=== PATIENT | female | born 1995 | race Caucasian/White ===

== ENCOUNTER → 2016-05-17 | Outpatient (CLI) | payer OTHER ==
[~2016-05-17] MED LIST: TYLE325T5 PO; [UNRECOGNIZED DRUG - OTHER]
[2016-05-17 13:39] LABS: ALBUMIN 3.9 GM/DL (3.2-5.2); ALBUMIN/GLOBULIN RATIO 1.22 (1.00-1.93); ALKALINE PHOSPHATASE 62 U/L (45-117); ALT/SGPT 13 U/L (12-78); ANION GAP 7 MEQ/L (8-16); AST/SGOT 11 U/L (15-37); BILIRUBIN,TOTAL 0.4 MG/DL (0.2-1.0); BLOOD UREA NITROGEN 10 MG/DL (7-18); CALCIUM LEVEL 9.1 MG/DL (8.5-10.1); CARBON DIOXIDE LEVEL 28 MEQ/L (21-32); CHLORIDE LEVEL 106 MEQ/L (98-107); CHOLESTEROL LEVEL 166 MG/DL (<200); CREATININE FOR GFR 0.68 MG/DL (0.55-1.02); GLOMERULAR FILTRATION RATE > 60.0 (>60); GLUCOSE, FASTING 89 MG/DL (70-105); SODIUM LEVEL 141 MEQ/L (136-145); TOTAL PROTEIN 7.1 GM/DL (6.4-8.2); TRIGLYCERIDES LEVEL 82 MG/DL (<150)
== END ==
LOC: M LAB 12:18
PROVIDERS: ATTEND Nurse Practitioner Family
DX: R63.5 Abnormal weight gain (principal)

== ENCOUNTER 2016-05-31 17:11 | Emergency (ER) | payer OTHER ==
[2016-05-31] MEDS ORDERED: KETOROLAC 30 MG/ML VIAL (J1885) As Ordered ONE (18:31)
[2016-05-31] MEDS ORDERED: ONDANSETRON 4 MG ORAL DISINTEGRATING TAB (S0181) As Ordered ONE (18:31)
--- NOTE | 2016-05-31 19:19 | EDDOCDS ---
Physician Documentation [facility] Name: Hafsa Hutchison Age: 21 yrs Sex: Female : 1995 Arrival Date: 05/31/2016 Time: 17:11 Bed TR3 Private MD: Feli Rodriguez FNP Disposition: 05/31/16 18:59 Discharged to Home/Self Care. Impression: Nausea, Diarrhea, unspecified, Viral infection, unspecified. - Condition is Stable. - Discharge Instructions: Viral Infections, Viral Gastroenteritis, Clai-uv-Nwul. - Prescriptions for ZOFRAN ODT 4 mg - dissolve 1 tablet by ORAL route 4 times per day As needed do not chew, do not swallow whole; 10 tablet. - Medication Reconciliation, Work Release Form - 2 day, Local Pharmacy Hours form. - Follow up: Feli Rodriguez; When: Call to arrange an appointment; Reason: Further diagnostic work-up, Recheck today's complaints, Continuance of care. - Problem is new. - Symptoms are unchanged. Historical: - Allergies: Benadryl (itching); - Home Meds: 1. none - PMHx: Hypertension; Anxiety; - PSHx: Adenoidectomy; Tubes in ears; - Social history: Smoking status: Patient uses tobacco products, current every day smoker. No barriers to communication noted, The patient speaks fluent Dutch. - Family history: Not pertinent. - : The pt / caregiver states he / she is not on anticoagulants. Home medication list is obtained from the patient. - Exposure Risk Screening:: None identified. 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 3 in. (160.02 cm) (R); Pain 5/10; 19:07 BP 122 / 82; Pulse 99; Resp 18; Temp 98.6(TE); Pulse Ox 100% on R/A; Pain 4/10; mdr 17:13 Body Mass Index 27.99 (71.67 kg, 160.02 cm) gr2 MDM: 17:36 Strep Screen, Nursing ordered. dt4 17:36 UCG by Nursing ordered. dt4 17:37 Urinalysis Ordered. EDMS 17:37 Urine Culture Ordered. EDMS 17:55 GATS (NEGATIVE STREP SCREEN) Ordered. EDMS 17:57 [facility] Payment Agreement was scanned into [employer] and attached to record. gb 18:19 Financial registration complete. gb 18:24 Urinalysis Reviewed. btw 18:25 Ondansetron ODT Oral Disintegrating Tablet 4 mg PO once ordered. btw 18:25 ketorolac 30 mg IM once ordered. btw 18:26 CT ABD & PELVIS: No Contrast Ordered. EDMS Point of Care Testing: Urine : 17:58 hCG Reading: Negative; Control Reading: Positive; mlb1 Ranges: Administered Medications: 18:35 Drug: Ondansetron ODT 4 mg [ondansetron 4 mg disintegrating tablet (1 tabs)] Route: PO; mlb1 18:35 Drug: ketorolac 30 mg [ketorolac 30 mg/mL (1 mL) injection solution (1 mL)] Route: IM; mlb1 Site: left deltoid; Signatures: Dispatcher MedHost EDMS Angelica Joyce, Reg Reg gb Kuldeep Pepper PA PA btTarun Strong,RN RN Ute Matson PA-C PA-C dtSybil Dubois RN RN ms18 Preet Green RN mlb1 The chart was reviewed and I authenticate all verbal orders and agree with the evaluation and treatment provided.Attachments: 17:57 [facility] Payment Agreement gb MTDD
--- NOTE | 2016-05-31 19:19 | EDDOCDS ---
Nurse's Notes [facility] Name: Hafsa Hutchison Age: 21 yrs Sex: Female : 1995 Arrival Date: 05/31/2016 Time: 17:11 Bed TR3 Private MD: Feli Rodriguez FNP Diagnosis: Nausea;Diarrhea, unspecified;Viral infection, unspecified Presentation: 05/31 17:16 Presenting complaint: Patient states: that she has a sore throat, diarrhea, nausea that ms18 all began today. Pt also c/o L flank pain that began later in the day and a migraine. Adult Sepsis Screening: The patient does not have new or worsening altered mentation. Patient's respiratory rate is less than 22. Systolic blood pressure is greater than 100. Patient has a qSOFA score of 0- Negative Sepsis Screen. Suicide/Homicide risk assessment- the patient denies having any suicidal and/or homicidal ideations and does not present with any other emotional, behavioral or mental health complaints. Status: Patient is not a dental service technician or dependent. Transition of care: patient was not received from another setting of care. 17:16 Acuity: ANDREIA Level 3 ms18 17:16 Method Of Arrival: Walkin/Carried/Asstd ms18 Triage Assessment: 17:20 General: Appears in no apparent distress, comfortable, Behavior is appropriate for age, ms18 cooperative. Pain: Location: left flank Pain currently is 6 out of 10 on a pain scale. HIV screening NA for this visit Offered previously. Neurological: No deficits noted. Respiratory: Airway is patent Respiratory effort is even, unlabored. GI: Abdomen is non- distended Reports diarrhea, nausea. Derm: Skin is pink, warm & dry. 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 none - PMHx: Hypertension; Anxiety; - PSHx: Adenoidectomy; Tubes in ears; - Social history: Smoking status: Patient uses tobacco products, current every day smoker. No barriers to communication noted, The patient speaks fluent Monegasque. - Family history: Not pertinent. - : The pt / caregiver states he / she is not on anticoagulants. Home medication list is obtained from the patient. - Exposure Risk Screening:: None identified. Screenin:16 Screening information is obtained from the patient. Fall risk: No risks identified. jmb Assistance ADL's: requires no assistance with activities of daily living. Abuse/DV Screen: The patient / caregiver reports he/she is: not in a situation that causes fear, pain or injury. Nutritional screening: No deficits noted. Advance Directives: Currently, there is no health care proxy. There is no active DNR order. There is no living will. There is no Power of Survey Coordinator. home support is adequate. Assessment: 19:16 General: Patient instructed on discharge instructions. Patient asked if there were any b questions regarding discharge, patient stated no. Patient signed discharge instructions. Patient discharged in stable condition. . GI: Abdomen is non- distended Bowel sounds present X 4 quads. Abd is soft X 4 quads. Vital Signs: 17:13 BP 149 / 89; Pulse 112; Resp 18 S; Temp 97.5(O); Pulse Ox 100% on R/A; Weight 71.67 kg gr2 (R); Height 5 ft. 3 in. (160.02 cm) (R); Pain 5/10; 19:07 BP 122 / 82; Pulse 99; Resp 18; Temp 98.6(TE); Pulse Ox 100% on R/A; Pain 4/10; mdr 17:13 Body Mass Index 27.99 (71.67 kg, 160.02 cm) gr2 Vitals: 17:13 Log In Time: May 31, 2016 at 17:13. gr2 ED Course: 17:12 Patient visited by Jney Walton. gr2 17:12 Feli Rodriguez is Private Physician. gr2 17:12 Patient moved to Waiting gr2 17:14 Patient visited by Jeny Walton. gr2 17:14 Patient moved to Pre RCE gr2 17:18 Triage Initiated ms18 17:33 Patient moved to Triage 1 mlb1 17:53 Urine Culture Sent. mlb1 17:53 Urinalysis Sent. mlb1 17:57 [facility] [place] Agreement was scanned into [employer] and attached to record. gb 18:01 GATS (NEGATIVE STREP SCREEN) Sent. mlb1 18:05 Kuldeep Pepper PA is PHCP. btw 18:05 Antoine Apodaca MD is Attending Physician. btw 18:05 Patient visited by Kuldeep Pepper PA. btw 18:35 Patient moved to TR1 mlb1 18:59 Feli Rodriguez is Referral Physician. btw 19:03 Patient moved to PR 9 19:07 Patient visited by Roman Johansen PCA. mdr 19:16 The patient / caregiver is instructed regarding the plan of care and ED course. jmb 19:16 No IV's were initiated during this patient's visit. No procedures done that require jmb assistance. 19:18 Patient moved to TR3 mdr Administered Medications: 18:35 Drug: Ondansetron ODT 4 mg [ondansetron 4 mg disintegrating tablet (1 tabs)] Route: PO; mlb1 18:35 Drug: ketorolac 30 mg [ketorolac 30 mg/mL (1 mL) injection solution (1 mL)] Route: IM; mlb1 Site: left deltoid; Point of Care Testing: Urine : 17:58 hCG Reading: Negative; Control Reading: Positive; mlb1 Ranges: Order Results: Lab Order: Urinalysis; SPEC'M 05/31/16 17:44 Test: APPEARANCE, URINE; Value: HAZY; Range: CLEAR; Status: F Test: COLOR, URINE; Value: YELLOW; Range: YELLOW; Status: F Test: PH,URINE; Value: 5.0; Range: 5.0-9.0; Units: UNITS; Status: F Test: SPECIFIC GRAVITY URINE AUTO; Value: 1.024; Range: 1.002-1.035; Status: F Test: PROTEIN, URINE AUTO; Value: NEGATIVE; Range: NEGATIVE; Units: mg/dL; Status: F Test: GLUCOSE, URINE (UA) AUTO; Value: NEGATIVE; Range: NEGATIVE; Units: mg/dL; Status: F Test: KETONE, URINE AUTO; Value: NEGATIVE; Range: NEGATIVE; Units: mg/dL; Status: F Test: UROBILINOGEN, URINE AUTO; Value: 0.2; Range: 0.0-2.0; Units: mg/dL; Status: F Test: BILIRUBIN, URINE AUTO; Value: NEGATIVE; Range: NEGATIVE; Status: F Test: NITRITE, URINE AUTO; Value: NEGATIVE; Range: NEGATIVE; Status: F Test: LEUKOCYTE ESTERASE, URINE AUTO; Value: NEGATIVE; Range: NEGATIVE; Status: F Test: BLOOD, URINE BLOOD; Value: NEGATIVE; Range: NEGATIVE; Status: F Test: WBC, URINE AUTO; Value: 0; Range: 0-3; Units: /HPF; Status: F Test: RBC, URINE AUTO; Value: 2; Range: 0-3; Units: /HPF; Status: F Test: BACTERIA, URINE AUTO; Value: 1+; Range: NEGATIVE; Abnormal: Above high normal; Status: F Test: SQUAMOUS EPITHELIAL CELL UR AU; Value: 6; Range: 0-6; Units: /HPF; Status: F Test: MUCUS, URINE; Value: SMALL; Range: NEGATIVE; Status: F Test: HYALINE CAST, URINE AUTO; Value: 1; Range: 0-1; Units: /LPF; Status: F Outcome: 18:59 Discharge ordered by Provider. btw 19:16 Discharge Assessment: Patient awake, alert and oriented x 3. No cognitive and/or jmb functional deficits noted. Patient verbalized understanding of disposition instructions. Patient awake and alert. obeys commands, Oriented to person, place and time. Patient verbalized understanding of disposition instructions. Patient has no functional deficits. patient administered narcotics - no. The following High Risk Discharge criteria are identified: None. Discharged to home ambulatory, with significant other. Condition: stable Condition: improved. Discharge instructions given to patient, Instructed on discharge instructions, follow up and referral plans. medication usage, Demonstrated understanding of instructions, medications, Pt was receptive of discharge instructions/ teaching. Prescriptions given X 1. Work note provided to patient. No special radiology studies were completed. Property sent home with patient. 19:18 Patient left the ED. b Signatures: Angelica Joyce, Reg Reg gb Preet Green RN RN mlb1 Kuldeep Pepper PA PA btw Jeny Walton gr2 Tarun Chaidez RN RN mumtazb Sybil Ngo,SOHEILA RN ms18 Preet Sharp,RN RN mb9 Roman Johansen, MARA RANGE MASTER mdr MTDD
--- NOTE | 2016-06-01 08:26 | REP ---
Clinical: Diffuse generalized and Left flank pain. Comparison: 04/04/2013. Findings: Lung bases clear. Visualized heart and pericardium normal. Liver, spleen, pancreas, gallbladder, bilateral adrenal glands and kidneys are normal. Specifically, there is no hydroureteronephrosis, perinephric stranding, intrarenal or obstructing ureteral calculi. The enteric system is without obstruction or acute inflammatory process. Pelvis demonstrates normal bladder and retroverted uterus/adnexa with no pelvic fluid/ascites. No free air. No obvious adenopathy. Musculoskeletal structures are grossly intact. Impression: No acute intra-abdominal or pelvic pathology appreciated. Signed by Robert Lawrence MD 06/01/2016 08:17 A
--- NOTE | 2016-06-02 20:19 | EDDOCDS ---
Nurse's Notes [facility] Name: Hafsa Hutchison Age: 21 yrs Sex: Female : 1995 Arrival Date: 05/31/2016 Time: 17:11 Bed TR3 Private MD: Feli Rodriguez FNP Diagnosis: Nausea;Diarrhea, unspecified;Viral infection, unspecified Presentation: 05/31 17:16 Presenting complaint: Patient states: that she has a sore throat, diarrhea, nausea that ms18 all began today. Pt also c/o L flank pain that began later in the day and a migraine. Adult Sepsis Screening: The patient does not have new or worsening altered mentation. Patient's respiratory rate is less than 22. Systolic blood pressure is greater than 100. Patient has a qSOFA score of 0- Negative Sepsis Screen. Suicide/Homicide risk assessment- the patient denies having any suicidal and/or homicidal ideations and does not present with any other emotional, behavioral or mental health complaints. Status: Patient is not a conference service coordinator or dependent. Transition of care: patient was not received from another setting of care. 17:16 Acuity: ANDREIA Level 3 ms18 17:16 Method Of Arrival: Walkin/Carried/Asstd ms18 Triage Assessment: 17:20 General: Appears in no apparent distress, comfortable, Behavior is appropriate for age, ms18 cooperative. Pain: Location: left flank Pain currently is 6 out of 10 on a pain scale. HIV screening NA for this visit Offered previously. Neurological: No deficits noted. Respiratory: Airway is patent Respiratory effort is even, unlabored. GI: Abdomen is non- distended Reports diarrhea, nausea. Derm: Skin is pink, warm & dry. 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 none - PMHx: Hypertension; Anxiety; - PSHx: Adenoidectomy; Tubes in ears; - Social history: Smoking status: Patient uses tobacco products, current every day smoker. No barriers to communication noted, The patient speaks fluent Surinamese. - Family history: Not pertinent. - : The pt / caregiver states he / she is not on anticoagulants. Home medication list is obtained from the patient. - Exposure Risk Screening:: None identified. Screenin:16 Screening information is obtained from the patient. Fall risk: No risks identified. jmb Assistance ADL's: requires no assistance with activities of daily living. Abuse/DV Screen: The patient / caregiver reports he/she is: not in a situation that causes fear, pain or injury. Nutritional screening: No deficits noted. Advance Directives: Currently, there is no health care proxy. There is no active DNR order. There is no living will. There is no Power of Ccu Nurse. home support is adequate. Assessment: 19:16 General: Patient instructed on discharge instructions. Patient asked if there were any b questions regarding discharge, patient stated no. Patient signed discharge instructions. Patient discharged in stable condition. . GI: Abdomen is non- distended Bowel sounds present X 4 quads. Abd is soft X 4 quads. Vital Signs: 17:13 BP 149 / 89; Pulse 112; Resp 18 S; Temp 97.5(O); Pulse Ox 100% on R/A; Weight 71.67 kg gr2 (R); Height 5 ft. 3 in. (160.02 cm) (R); Pain 5/10; 19:07 BP 122 / 82; Pulse 99; Resp 18; Temp 98.6(TE); Pulse Ox 100% on R/A; Pain 4/10; mdr 17:13 Body Mass Index 27.99 (71.67 kg, 160.02 cm) gr2 Vitals: 17:13 Log In Time: May 31, 2016 at 17:13. gr2 ED Course: 17:12 Patient visited by Jeny Walton. gr2 17:12 Feli oRdriguez is Private Physician. gr2 17:12 Patient moved to Waiting gr2 17:14 Patient visited by Jeny Walton. gr2 17:14 Patient moved to Pre RCE gr2 17:18 Triage Initiated ms18 17:33 Patient moved to Triage 1 mlb1 17:53 Urine Culture Sent. mlb1 17:53 Urinalysis Sent. mlb1 17:57 [facility] Payment Agreement was scanned into [employer] and attached to record. gb 18:01 GATS (NEGATIVE STREP SCREEN) Sent. mlb1 18:05 Kuldeep Pepper PA is PHCP. btw 18:05 Antoine Apodaca MD is Attending Physician. btw 18:05 Patient visited by Kuldeep Pepper PA. btw 18:35 Patient moved to TR1 mlb1 18:59 Feli Rodriguez is Referral Physician. btw 19:03 Patient moved to PR2 / mb9 19:07 Patient visited by Roman Johansen PCA. mdr 19:16 The patient / caregiver is instructed regarding the plan of care and ED course. jmb 19:16 No IV's were initiated during this patient's visit. No procedures done that require jmb assistance. 19:18 Patient moved to TR3 mdr 02 08:33 CT ABD & PELVIS: No Contrast Returned. EDMS 10:37 T-Sheet-- Draft Copy was scanned into [employer] and attached to record. gb Administered Medications: 05/31 18:35 Drug: Ondansetron ODT 4 mg [ondansetron 4 mg disintegrating tablet (1 tabs)] Route: PO; mlb1 18:35 Drug: ketorolac 30 mg [ketorolac 30 mg/mL (1 mL) injection solution (1 mL)] Route: IM; mlb1 Site: left deltoid; Point of Care Testing: Urine : 17:58 hCG Reading: Negative; Control Reading: Positive; mlb1 Ranges: Order Results: Lab Order: Urinalysis; SPEC'M 05/31/16 17:44 Test: APPEARANCE, URINE; Value: HAZY; Range: CLEAR; Status: F Test: COLOR, URINE; Value: YELLOW; Range: YELLOW; Status: F Test: PH,URINE; Value: 5.0; Range: 5.0-9.0; Units: UNITS; Status: F Test: SPECIFIC GRAVITY URINE AUTO; Value: 1.024; Range: 1.002-1.035; Status: F Test: PROTEIN, URINE AUTO; Value: NEGATIVE; Range: NEGATIVE; Units: mg/dL; Status: F Test: GLUCOSE, URINE (UA) AUTO; Value: NEGATIVE; Range: NEGATIVE; Units: mg/dL; Status: F Test: KETONE, URINE AUTO; Value: NEGATIVE; Range: NEGATIVE; Units: mg/dL; Status: F Test: UROBILINOGEN, URINE AUTO; Value: 0.2; Range: 0.0-2.0; Units: mg/dL; Status: F Test: BILIRUBIN, URINE AUTO; Value: NEGATIVE; Range: NEGATIVE; Status: F Test: NITRITE, URINE AUTO; Value: NEGATIVE; Range: NEGATIVE; Status: F Test: LEUKOCYTE ESTERASE, URINE AUTO; Value: NEGATIVE; Range: NEGATIVE; Status: F Test: BLOOD, URINE BLOOD; Value: NEGATIVE; Range: NEGATIVE; Status: F Test: WBC, URINE AUTO; Value: 0; Range: 0-3; Units: /HPF; Status: F Test: RBC, URINE AUTO; Value: 2; Range: 0-3; Units: /HPF; Status: F Test: BACTERIA, URINE AUTO; Value: 1+; Range: NEGATIVE; Abnormal: Above high normal; Status: F Test: SQUAMOUS EPITHELIAL CELL UR AU; Value: 6; Range: 0-6; Units: /HPF; Status: F Test: MUCUS, URINE; Value: SMALL; Range: NEGATIVE; Status: F Test: HYALINE CAST, URINE AUTO; Value: 1; Range: 0-1; Units: /LPF; Status: F Lab Order: Urine Culture; SPEC'M 05/31/16 17:44 Test: URINE CULTURE; Value: <EXTERNAL COMMENT eCWMed> FULL REPORT IN LAB NOTES (eCW and Medent).; Status: F Test: URINE CULTURE; Value: URINE CULTURE RESULT NO GROWTH; Status: F Lab Order: GATS (NEGATIVE STREP SCREEN); SPEC'M 05/31/16 17:59 Test: GATS CULTURE (NEG STREP SCR); Value: GATS RESULT NEGATIVE FOR STREP PYOGENES (GROUP A); Status: F Test: GATS CULTURE (NEG STREP SCR); Value: <EXTERNAL COMMENT eCWMed> FULL REPORT IN LAB NOTES (eCW and Medent).; Status: F Radiology Order: CT ABD & PELVIS: No Contrast Test: CT ABD & PELVIS: No Contrast REASON FOR EXAMINATION: left FLANK PAIN;Abd. Pain - Generalized, Nn-focal Exam; Clinical: Diffuse generalized and Left flank pain.; ; Comparison: 04/04/2013.; ; Findings:; Lung bases clear. Visualized heart and pericardium normal.; ; Liver, spleen, pancreas, gallbladder, bilateral adrenal glands and kidneys are; normal. Specifically, there is no hydroureteronephrosis, perinephric stranding,; intrarenal or obstructing ureteral calculi. The enteric system is without; obstruction or acute inflammatory process. Pelvis demonstrates normal bladder; and retroverted uterus/adnexa with no pelvic fluid/ascites. No free air. No; obvious adenopathy. Musculoskeletal structures are grossly intact.; ; Impression:; No acute intra-abdominal or pelvic pathology appreciated.; ; ; Signed by; Robert Lawrence MD 06/01/2016 08:17 A; Outcome: 18:59 Discharge ordered by Provider. btw 19:16 Discharge Assessment: Patient awake, alert and oriented x 3. No cognitive and/or jmb functional deficits noted. Patient verbalized understanding of disposition instructions. Patient awake and alert. obeys commands, Oriented to person, place and time. Patient verbalized understanding of disposition instructions. Patient has no functional deficits. patient administered narcotics - no. The following High Risk Discharge criteria are identified: None. Discharged to home ambulatory, with significant other. Condition: stable Condition: improved. Discharge instructions given to patient, Instructed on discharge instructions, follow up and referral plans. medication usage, Demonstrated understanding of instructions, medications, Pt was receptive of discharge instructions/ teaching. Prescriptions given X 1. Work note provided to patient. No special radiology studies were completed. Property sent home with patient. 19:18 Patient left the ED. lucio Signatures: Dispatcher [employer] EDMS Angelica Joyce, Reg Reg gb Preet Green, RN RN mlb1 Kuldeep Pepper PA PA btw Jeny Walton gr2 Tarun ChaidezRN RN Sybil Sher RN RN ms18 Preet Sharp,RN RN mb9 Roman Johansen, MARA CEMENT OR CONCRETE FINISHING SUPERVISOR mdr Chart Complete MTDD
--- NOTE | 2016-06-02 20:19 | EDDOCDS ---
Physician Documentation [facility] Name: Hafsa Hutchison Age: 21 yrs Sex: Female : 1995 Arrival Date: 05/31/2016 Time: 17:11 Bed TR3 Private MD: Feli Rodriguez FNP Disposition: 05/31/16 18:59 Discharged to Home/Self Care. Impression: Nausea, Diarrhea, unspecified, Viral infection, unspecified. - Condition is Stable. - Discharge Instructions: Viral Infections, Viral Gastroenteritis, [id number]. - Prescriptions for ZOFRAN ODT 4 mg - dissolve 1 tablet by ORAL route 4 times per day As needed do not chew, do not swallow whole; 10 tablet. - Medication Reconciliation, Work Release Form - 2 day, Local Pharmacy Hours form. - Follow up: Feli Rodriguez; When: Call to arrange an appointment; Reason: Further diagnostic work-up, Recheck today's complaints, Continuance of care. - Problem is new. - Symptoms are unchanged. Historical: - Allergies: Benadryl (itching); - Home Meds: 1. none - PMHx: Hypertension; Anxiety; - PSHx: Adenoidectomy; Tubes in ears; - Social history: Smoking status: Patient uses tobacco products, current every day smoker. No barriers to communication noted, The patient speaks fluent Belizean. - Family history: Not pertinent. - : The pt / caregiver states he / she is not on anticoagulants. Home medication list is obtained from the patient. - Exposure Risk Screening:: None identified. RN PATIENT SERVICES: 05/31 17:20 LMP 05/05/2016 ms18 Vital Signs: 17:13 BP 149 / 89; Pulse 112; Resp 18 S; Temp 97.5(O); Pulse Ox 100% on R/A; Weight 71.67 kg gr2 / 158.01 lbs (R); Height 5 ft. 3 in. (160.02 cm) (R); Pain 5/10; 19:07 BP 122 / 82; Pulse 99; Resp 18; Temp 98.6(TE); Pulse Ox 100% on R/A; Pain 4/10; mdr 17:13 Body Mass Index 27.99 (71.67 kg, 160.02 cm) gr2 MDM: 17:36 Strep Screen, Nursing ordered. dt4 17:36 UCG by Nursing ordered. dt4 17:37 Urinalysis Ordered. EDMS 17:37 Urine Culture Ordered. EDMS 17:55 GATS (NEGATIVE STREP SCREEN) Ordered. EDMS 17:57 [facility] Payment Agreement was scanned into [employer] and attached to record. gb 18:19 Financial registration complete. gb 18:24 Urinalysis Reviewed. btw 18:25 Ondansetron ODT Oral Disintegrating Tablet 4 mg PO once ordered. btw 18:25 ketorolac 30 mg IM once ordered. btw 18:26 CT ABD & PELVIS: No Contrast Ordered. EDMS 06/01 10:37 T-Sheet-- Draft Copy was scanned into [employer] and attached to record. gb Point of Care Testing: Urine : 05/31 17:58 hCG Reading: Negative; Control Reading: Positive; mlb1 Ranges: Administered Medications: 18:35 Drug: Ondansetron ODT 4 mg [ondansetron 4 mg disintegrating tablet (1 tabs)] Route: PO; mlb1 18:35 Drug: ketorolac 30 mg [ketorolac 30 mg/mL (1 mL) injection solution (1 mL)] Route: IM; mlb1 Site: left deltoid; Signatures: Dispatcher [employer] EDTX Angelica Joyce, Reg Reg gb Kuldeep Pepper PA PA btw Becker, Joshua,RN RN Ute Matson PA-C PA-C dt4 Sybil Ngo RN RN ms18 Preet Green RN mlb1 The chart was reviewed and I authenticate all verbal orders and agree with the evaluation and treatment provided.Attachments: 17:57 [facility] Payment Agreement gb 06/01 10:37 T-Sheet-- Draft Copy gb Chart Complete MTDD
--- NOTE | 2016-06-02 20:19 | EDDOCDS ---
Physician Documentation [facility] Name: Hafsa Hutchison Age: 21 yrs Sex: Female : 1995 Arrival Date: 05/31/2016 Time: 17:11 Bed TR3 Private MD: Feli Rodriguez FNP Disposition: 05/31/16 18:59 Discharged to Home/Self Care. Impression: Nausea, Diarrhea, unspecified, Viral infection, unspecified. - Condition is Stable. - Discharge Instructions: Viral Infections, Viral Gastroenteritis, [id number]. - Prescriptions for ZOFRAN ODT 4 mg - dissolve 1 tablet by ORAL route 4 times per day As needed do not chew, do not swallow whole; 10 tablet. - Medication Reconciliation, Work Release Form - 2 day, Local Pharmacy Hours form. - Follow up: Feli Rodriguez; When: Call to arrange an appointment; Reason: Further diagnostic work-up, Recheck today's complaints, Continuance of care. - Problem is new. - Symptoms are unchanged. Historical: - Allergies: Benadryl (itching); - Home Meds: 1. none - PMHx: Hypertension; Anxiety; - PSHx: Adenoidectomy; Tubes in ears; - Social history: Smoking status: Patient uses tobacco products, current every day smoker. No barriers to communication noted, The patient speaks fluent Turkmen. - Family history: Not pertinent. - : The pt / caregiver states he / she is not on anticoagulants. Home medication list is obtained from the patient. - Exposure Risk Screening:: None identified. 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 3 in. (160.02 cm) (R); Pain 5/10; 19:07 BP 122 / 82; Pulse 99; Resp 18; Temp 98.6(TE); Pulse Ox 100% on R/A; Pain 4/10; mdr 17:13 Body Mass Index 27.99 (71.67 kg, 160.02 cm) gr2 MDM: 17:36 Strep Screen, Nursing ordered. dt4 17:36 UCG by Nursing ordered. dt4 17:37 Urinalysis Ordered. EDMS 17:37 Urine Culture Ordered. EDMS 17:55 GATS (NEGATIVE STREP SCREEN) Ordered. EDMS 17:57 [facility] Payment Agreement was scanned into [employer] and attached to record. gb 18:19 Financial registration complete. gb 18:24 Urinalysis Reviewed. btw 18:25 Ondansetron ODT Oral Disintegrating Tablet 4 mg PO once ordered. btw 18:25 ketorolac 30 mg IM once ordered. btw 18:26 CT ABD & PELVIS: No Contrast Ordered. EDMS 06/01 10:37 T-Sheet-- Draft Copy was scanned into [employer] and attached to record. gb Point of Care Testing: Urine : 05/31 17:58 hCG Reading: Negative; Control Reading: Positive; mlb1 Ranges: Administered Medications: 18:35 Drug: Ondansetron ODT 4 mg [ondansetron 4 mg disintegrating tablet (1 tabs)] Route: PO; mlb1 18:35 Drug: ketorolac 30 mg [ketorolac 30 mg/mL (1 mL) injection solution (1 mL)] Route: IM; mlb1 Site: left deltoid; Signatures: Dispatcher [employer] EDMA Angelica Joyce, Reg Reg gb Kuldeep Pepper PA PA btw Becker, Joshua,RN RN Ute Matson PA-C PA-C dt4 Sybil Ngo RN RN [id number] Preet Green RN mlb1 The chart was reviewed and I authenticate all verbal orders and agree with the evaluation and treatment provided.Attachments: 17:57 [facility] Payment Agreement gb 06/01 10:37 T-Sheet-- Draft Copy gb Chart Complete MTDD
== END 2016-05-31 19:18 | disposition home or self-care (01) ==
LOC: M ED 17:11
DX: R11.2 Nausea with vomiting, unspecified (principal); R19.7 Diarrhea, unspecified; I10 Essential (primary) hypertension; F41.9 Anxiety disorder, unspecified; Z96.22 Myringotomy tube(s) status; Z72.0 Tobacco use; Z88.8 Allergy status to other drugs, medicaments and biological substances
CPT/HCPCS: 74176; 81001; 81025; 87086; 87880; 96372; 99284; J1885

== ENCOUNTER → 2016-08-30 | Outpatient (CLI) | payer MEDICAID ==
[~2016-08-30] MED LIST changes: +PRENCHW PO
--- NOTE | 2016-08-30 17:15 | REP ---
Clinical: Dating and viability. Technique: Transabdominal first trimester obstetrical ultrasound using curved array transducer with color Doppler evaluation. Findings: Single live early intrauterine is appreciated. Gestational sac with yolk sac and pole identified. [place]-rump length of 2.1 cm corresponds to 8 weeks 5 days gestational age with estimated date of delivery 04/06/2017 . heart rate equals 126 beats per minute. No gross abnormalities are identified. Impression: Single live early intrauterine at 8 weeks 5 days gestational age. Complete anatomical assessment should be performed and 19-20 weeks. Signed by Robert Lawrence MD 08/30/2016 05:06 P
== END ==
LOC: M RAD 16:46
PROVIDERS: ATTEND Registered Nurse
DX: Z32.01 Encounter for pregnancy test, result positive (principal)

== ENCOUNTER 2016-09-04 08:43 | Emergency (ER) | payer OTHER, MEDICAID ==
[~2016-09-04] VITALS: Ht 160 cm; Wt 69.2 kg
[~2016-09-04 08:43] MED LIST changes: -PRENCHW PO
[2016-09-04 08:45] VITALS: BP 137/84
[2016-09-04] MEDS ORDERED: PRENCHW PO (09:39)
== END 2016-09-04 09:58 | disposition home or self-care (01) ==
LOC: M ED 09:09
DX: O9A.211 Injury, poisoning and certain other consequences of external causes complicating pregnancy, first trimester (principal); S29.9XXA Unspecified injury of thorax, initial encounter; Z3A.09 9 weeks gestation of pregnancy; O99.331 Smoking (tobacco) complicating pregnancy, first trimester; F17.210 Nicotine dependence, cigarettes, uncomplicated; W22.8XXA Striking against or struck by other objects, initial encounter; Y92.89 Other specified places as the place of occurrence of the external cause; Y93.01 Activity, walking, marching and hiking; Y99.9 Unspecified external cause status

== ENCOUNTER → 2016-09-17 | Outpatient (CLI) | payer MEDICAID, OTHER ==
[~2016-09-17] MED LIST changes: +ALBU83IN INH; +FLON1SPR; +KEFL500C7 PO; +PRENCHW PO
[2016-09-17 12:58] LABS: BASO % 0.3 % (0.0-1.0); EOS # 0.1 K/mm3 (0.0-0.50); EOS % 1.2 % (0.0-3.0); LARGE UNSTAINED CELL # 0.1 K/mm3 (0.0-0.4); LARGE UNSTAINED CELL % 1.2 % (0.0-4.0); LYMPH # 1.6 K/mm3 (1.5-6.5); MEAN CORPUSCULAR HEMOGLOBIN 28.3 pg (27.0-33.0); MEAN CORPUSCULAR HGB CONC 35.1 g/dl (32.0-36.5); MEAN CORPUSCULAR VOLUME 80.7 fl (80.0-96.0); MONO # 0.3 K/mm3 (0.0-0.8); MONO % 4.3 % (0.0-5.0); NEUTROPHILS # 4.4 K/mm3 (1.8-7.7); PLATELET COUNT, AUTOMATED 211 k/mm3 (150-450); RED CELL DISTRIBUTION WIDTH 12.7 % (11.5-14.5); WHITE BLOOD COUNT 6.4 K/mm3 (4.0-10.0)
[2016-09-18 11:00] LABS: HBsAg Prenatal NEGATIVE (NEGATIVE)
== END ==
LOC: M LAB 12:33
PROVIDERS: ATTEND Advanced Practice Midwife
DX: Z34.81 Encounter for supervision of other normal pregnancy, first trimester (principal)

== ENCOUNTER 2016-09-27 19:11 | Emergency (ER) | payer MEDICAID, OTHER ==
[~2016-09-27] VITALS: Ht 162.6 cm; Wt 68.0 kg
[~2016-09-27 19:11] MED LIST changes: -ALBU83IN INH; -FLON1SPR; -KEFL500C7 PO
[2016-09-27 19:12] VITALS: BP 153/90
[2016-09-27] MEDS ORDERED: IPRATROPIUM 0.5MG/ALBUTEROL 2.5MG INH SOL UD 3ML (DUONEB)(J7620) NEB ONE ×2 (20:30→21:00)
[2016-09-27] MEDS ORDERED: CEPHALEXIN 500 MG CAP PO ONE (21:00)
[2016-09-27] MEDS ORDERED: KEFL500C7 PO (21:02)
[2016-09-27] MEDS ORDERED: FLON1SPR (21:02)
[2016-09-27] MEDS ORDERED: ALBU83IN INH (21:02)
== END 2016-09-27 21:19 | disposition home or self-care (01) ==
LOC: M ED 20:19
DX: O23.41 Unspecified infection of urinary tract in pregnancy, first trimester (principal); O99.511 Diseases of the respiratory system complicating pregnancy, first trimester; J40 Bronchitis, not specified as acute or chronic; J06.9 Acute upper respiratory infection, unspecified; O99.331 Smoking (tobacco) complicating pregnancy, first trimester; F17.210 Nicotine dependence, cigarettes, uncomplicated; Z3A.00 Weeks of gestation of pregnancy not specified

== ENCOUNTER 2016-11-04 12:37 | Emergency (ER) | payer OTHER ==
[~2016-11-04] VITALS: Ht 165.1 cm; Wt 69.7 kg
[~2016-11-04 12:37] MED LIST changes: +ALBU83IN INH; +FLON1SPR; +KEFL500C17 PO
[2016-11-04] MEDS ORDERED: ACETAMINOPHEN 325 MG TAB PO ONE (13:30)
[2016-11-04 14:05] LABS: BASO % 0.3 % (0.0-1.0); EOS # 0.1 K/mm3 (0.0-0.50); EOS % 1.4 % (0.0-3.0); LARGE UNSTAINED CELL # 0.1 K/mm3 (0.0-0.4); LARGE UNSTAINED CELL % 1.7 % (0.0-4.0); LYMPH # 2.1 K/mm3 (1.5-6.5); LYMPH % 27.6 % (24.0-44.0); MEAN CORPUSCULAR HEMOGLOBIN 28.3 pg (27.0-33.0); MEAN CORPUSCULAR HGB CONC 35.8 g/dl (32.0-36.5); MEAN CORPUSCULAR VOLUME 79.3 fl (80.0-96.0); MONO # 0.3 K/mm3 (0.0-0.8); MONO % 4.2 % (0.0-5.0); NEUTROPHILS # 4.7 K/mm3 (1.8-7.7); NEUTROPHILS % 64.9 % (36.0-66.0); PLATELET COUNT, AUTOMATED 214 k/mm3 (150-450); RED CELL DISTRIBUTION WIDTH 13.9 % (11.5-14.5); WHITE BLOOD COUNT 7.2 K/mm3 (4.0-10.0)
[2016-11-04 14:11] LABS: ALBUMIN 2.9 GM/DL (3.2-5.2); ALBUMIN/GLOBULIN RATIO 0.83 (1.00-1.93); ALKALINE PHOSPHATASE 55 U/L (45-117); ALT/SGPT 15 U/L (12-78); ANION GAP 10 MEQ/L (8-16); AST/SGOT 10 U/L (15-37); BILIRUBIN,DIRECT < 0.1 MG/DL (0.0-0.2); BILIRUBIN,TOTAL 0.2 MG/DL (0.2-1.0); BLOOD UREA NITROGEN 6 MG/DL (7-18); CALCIUM LEVEL 8.2 MG/DL (8.5-10.1); CARBON DIOXIDE LEVEL 23 MEQ/L (21-32); CHLORIDE LEVEL 107 MEQ/L (98-107); CREATININE FOR GFR 0.44 MG/DL (0.55-1.02); GLOMERULAR FILTRATION RATE > 60.0 (>60); GLUCOSE, FASTING 90 MG/DL (70-105); POTASSIUM SERUM 3.7 MEQ/L (3.5-5.1); SODIUM LEVEL 140 MEQ/L (136-145); TOTAL PROTEIN 6.4 GM/DL (6.4-8.2)
[2016-11-04 16:57] VITALS: BP 121/71
--- NOTE | 2016-11-05 06:40 | REP ---
RENAL AND BLADDER ULTRASOUND: Real-time sonographic evaluation of kidneys performed. The kidneys are normal in size and echotexture, right kidney measuring 11.6 x 4.3 x 3.7 cm and left kidney 11.4 x 4.8 x 5.1 cm. There is no hydronephrosis or nephrolithiasis identified bilaterally. Urinary bladder is not distended. However, bilateral ureteral jets are visualized in the urinary bladder with Doppler color evaluation. Patient is and an intrauterine fetus demonstrates a heart rate of 141 beats per minute. IMPRESSION: No hydronephrosis. Ureteral jets visualized in the bladder. Signed by Umair Chowdhury MD 11/05/2016 07:23 P
--- NOTE | 2016-11-05 07:39 | REP ---
RIGHT UPPER QUADRANT ULTRASOUND: Real-time sonographic evaluation of the right upper quadrant performed. The gallbladder demonstrates no evidence of intraluminal sludge or calculi, wall thickening or pericholecystic fluid. There is no intrahepatic or extrahepatic biliary dilatation, common bile duct measuring 5 mm in diameter. The liver and pancreas demonstrate homogeneous echotexture with no gross mass. The right kidney demonstrates no hydronephrosis with a small extrarenal pelvis. Right kidney is normal in size measuring 11.6 cm in length. IMPRESSION: Negative right upper quadrant ultrasound. Signed by Umair Chowdhury MD 11/05/2016 07:24 P
== END 2016-11-04 17:01 | disposition home or self-care (01) ==
LOC: M ED 12:37
DX: R10.11 Right upper quadrant pain (principal); R11.0 Nausea; Z88.8 Allergy status to other drugs, medicaments and biological substances

== ENCOUNTER → 2016-11-08 | Outpatient (CLI) | payer OTHER ==
--- NOTE | 2016-11-09 06:16 | REP ---
Clinical: Anatomical evaluation. Comparison: 08/30/2016 . Findings: Examination demonstrates a single live intrauterine in cephalic presentation. motion is identified by technologist. Placenta is noted anteriorly and grade zero without evidence for placenta previa or abruption. Amniotic fluid volume is normal. Cervix measures 3.9 cm in length and appears closed. No evidence for nuchal cord. Gestational age by LMP 19 weeks 3 days with UNA 04/01/2017 . Gestational age by current measurements 18 weeks 5 days with UNA 04/06/2017 . FHR equals 147 beats per minute. BPD 4.0 cm 18 weeks 1 day HC 14.9 cm 18 weeks 0 days AC 13.6 cm 19 weeks 0 days FL 3.1 cm 19 weeks 4 days HL 2.8 cm 19 weeks 1 day HC/AC ratio 1.10 Estimated weight 174 grams ( 36th percentile). Anatomical assessment demonstrates normal structures including cranium, choroid plexus, cavum, cerebellum/posterior fossa, facial features, lungs, four-chamber heart/ventricular outflow tracts, diaphragm, stomach, cord insertion/three-vessel cord, bladder, and extremities. Impression: 1. Single live intrauterine in cephalic presentation demonstrating appropriate interval growth. 2. Limited evaluation of the kidneys and spine. Otherwise normal anatomical assessment. Signed by Robert Lawrence MD 11/09/2016 06:07 A
== END ==
LOC: M RAD 10:34
PROVIDERS: ATTEND Advanced Practice Midwife
DX: Z36 Encounter for antenatal screening of mother (principal); Z3A.18 18 weeks gestation of pregnancy

== ENCOUNTER → 2016-11-22 | Outpatient (REF) | payer OTHER | LOC: M LAB REF 17:16 | PROVIDERS: ATTEND Obstetrics & Gynecology | DX: Z34.82 Encounter for supervision of other normal pregnancy, second trimester (principal) ==

== ENCOUNTER → 2016-12-05 | Outpatient (CLI) | payer OTHER ==
--- NOTE | 2016-12-05 16:40 | REP ---
OB ULTRASOUND: Real-time sonographic evaluation of the gravid uterus is performed. There is a single living intrauterine gestation with an estimated gestational age of 23 weeks 2 days EDC 04/01/2017. Today's measurements indicate appropriate growth. Biometry and Growth: BPD 54 mm = 22 weeks 2 days, 23rd percentile HC 205 mm = 22 weeks 4 days, 30th percentile AC 188 mm = 23 weeks 4 days, 56th percentile FL 37 mm = 21 weeks 4 days, 8th percentile HC/AC ratio 1.09 within normal range. Estimated weight 526 grams, 27th percentile. SEEN/GROSSLY UNREMARKABLE Lateral ventricles Yes Posterior fossa Yes Upper lip Yes Four-chamber heart Yes LVOT Yes RVOT Yes Stomach Yes Cord insertion Yes Three vessel cord Yes Kidneys Yes Bladder Yes Spine Yes All seen except sacrum, which is not well seen due to breech position. Cervical length: Closed and measures 3.7 cm in length. heart rate: 169 beats per minute. position: Breech. Placenta: Anterior and grade 0 with no previa or abruption. Amniotic fluid: Amniotic fluid within normal limits. Signed by Umair Chowdhury MD 12/05/2016 04:48 P
== END ==
LOC: M RAD 15:19
PROVIDERS: ATTEND Specialist
DX: Z34.82 Encounter for supervision of other normal pregnancy, second trimester (principal)

== ENCOUNTER → 2016-12-30 | Outpatient (REF) | payer OTHER | LOC: M LAB REF 16:37 | PROVIDERS: ATTEND Physician Assistant | DX: N39.0 Urinary tract infection, site not specified (principal) ==

== ENCOUNTER → 2017-01-03 | Outpatient (CLI) | payer OTHER ==
--- NOTE | 2017-01-03 15:07 | REP ---
OB ULTRASOUND: Real-time sonographic evaluation of the gravid uterus performed. There is a single living intrauterine gestation. Estimated gestational age is 27 weeks 3 days based on LMP with EDC 04/01/2017. Today's measurements indicate appropriate growth. BPD 67 mm = 26 weeks 6 days, 38th percentile HC 247 mm = 26 weeks 6 days, 37th percentile AC 230 mm = 27 weeks 2 days, 49th percentile Femur length 51 mm = 27 weeks 1 day, 44th percentile HC/AC ratio 1.08 within normal range. Estimated weight 1036 grams, 36th percentile. heart rate 165 beats per minute. Cervix is closed and measures 3.8 cm in length. Amniotic fluid volume within normal limits, GRABIEL 15.6 within normal range of 9.5 to 22.7. SEEN/GROSSLY UNREMARKABLE Lateral ventricles Yes Posterior fossa Yes Upper lip No Four-chamber heart No LVOT No RVOT No Stomach Yes Cord insertion Yes Three vessel cord No Kidneys Yes Bladder Yes Spine Yes position: Vertex. Placenta: Anterior and fundal and grade 0 with no previa or abruption. Signed by Umair Chowdhury MD 01/04/2017 05:33 P
[2017-01-03 17:04] LABS: MEAN CORPUSCULAR HGB CONC 36.5 g/dl (32.0-36.5); MEAN CORPUSCULAR VOLUME 82.2 fl (80.0-96.0); RED CELL DISTRIBUTION WIDTH 13.1 % (11.5-14.5); WHITE BLOOD COUNT 7.8 K/mm3 (4.0-10.0)
== END ==
LOC: M LAB 13:17 → M RAD 13:17
PROVIDERS: ATTEND Advanced Practice Midwife
DX: Z34.82 Encounter for supervision of other normal pregnancy, second trimester (principal)

== ENCOUNTER → 2017-03-19 | Outpatient (REF) | payer OTHER | LOC: M LAB REF 13:36 | PROVIDERS: ATTEND Advanced Practice Midwife | DX: Z36.85 Encounter for antenatal screening for Streptococcus B (principal); Z3A.00 Weeks of gestation of pregnancy not specified ==

== ENCOUNTER → 2017-03-29 | Outpatient (CLI) | payer OTHER ==
[~2017-03-29] MED LIST changes: +ACET50TA PO; +IBUP-1114 PO
[2017-03-29 19:12] LABS: ALT/SGPT 12 U/L (12-78); AST/SGOT 9 U/L (7-37); BILIRUBIN,TOTAL 0.3 MG/DL (0.2-1.0); CREATININE FOR GFR 0.51 MG/DL (0.55-1.02); GLOMERULAR FILTRATION RATE > 60.0 (>60); URIC ACID 3.2 MG/DL (2.6-6.0)
[2017-03-29 19:43] LABS: MEAN CORPUSCULAR HEMOGLOBIN 27.6 pg (27.0-33.0); MEAN CORPUSCULAR HGB CONC 33.2 g/dl (32.0-36.5); MEAN CORPUSCULAR VOLUME 82.9 fl (80.0-96.0); PLATELET COUNT, AUTOMATED 249 10^3/uL (150-450); RED CELL DISTRIBUTION WIDTH 13.3 % (11.5-14.5); WHITE BLOOD COUNT 10.8 10^3/uL (4.0-10.0)
== END ==
LOC: M SMT 15:40
PROVIDERS: ATTEND Advanced Practice Midwife
DX: O16.3 Unspecified maternal hypertension, third trimester (principal)

== ENCOUNTER 2017-03-30 18:35 | Inpatient (IN) | payer OTHER ==
[~2017-03-30] VITALS: Ht 162.6 cm; Wt 87.1 kg
[2017-03-30] VITALS (10 sets, daily range): BP systolic 119–133; BP diastolic 74–87
[~2017-03-30 18:35] MED LIST changes: -ACET50TA PO; -IBUP-1114 PO
[2017-03-30] MEDS: miSOPROStol 50 MCG 1/2 TAB (S0191) PO SCH ×2 (19:40→23:56)
[2017-03-30 19:47] LABS: MEAN CORPUSCULAR HEMOGLOBIN 28.3 pg (27.0-33.0); MEAN CORPUSCULAR HGB CONC 35.1 g/dl (32.0-36.5); MEAN CORPUSCULAR VOLUME 80.6 fl (80.0-96.0); PLATELET COUNT, AUTOMATED 261 10^3/uL (150-450); RED CELL DISTRIBUTION WIDTH 13.5 % (11.5-14.5); WHITE BLOOD COUNT 11.5 10^3/uL (4.0-10.0)
[2017-03-30 20:59] LABS: ALT/SGPT 13 U/L (12-78); AST/SGOT 10 U/L (7-37); BILIRUBIN,TOTAL 0.3 MG/DL (0.2-1.0); CREATININE FOR GFR 0.44 MG/DL (0.55-1.02); GLOMERULAR FILTRATION RATE > 60.0 (>60); URIC ACID 2.9 MG/DL (2.6-6.0)
[2017-03-31] VITALS (63 sets, daily range): BP systolic 102–150; BP diastolic 54–98
[2017-03-31] MEDS: miSOPROStol 50 MCG 1/2 TAB (S0191) PO SCH ×2 (04:12→09:31)
--- NOTE | 2017-03-31 08:37 | HPE ---
DATE OF ADMISSION: 03/30/2017 REASON FOR ADMISSION: Induction of labor. HISTORY OF THE PRESENT ILLNESS: Ms. Hutchison is a 22-year-old 2, para 0 who presents at 39 weeks 0 days estimated gestational age by last menstrual period, confirmed by a first trimester ultrasound and presents for induction of labor. She initially presented yesterday for a routine visit; she was noted to have elevated blood pressures. She was directed to followup today where she returned to the office once again with repetitive mildly elevated blood pressures. She denied any vaginal bleeding, leakage of fluid, visual changes, headaches or abdominal pain, and she reports active movement. Her course has been only remarkable for tobacco use during her , otherwise unremarkable. She initiated care in her first trimester and has been appropriate throughout. PAST MEDICAL HISTORY: She reports a history of seizures. PAST SURGICAL HISTORY: She has had tonsils and adenoidectomy. PAST OBSTETRICAL HISTORY: She is a 2, para 0. SOCIAL HISTORY: She reports tobacco use during her . Denies any alcohol or drug use during her . MEDICATIONS: Include Colace and vitamins. ALLERGIES: She has allergies to BENADRYL. PHYSICAL EXAMINATION: Vital signs: Blood pressure 133/87. She is afebrile. She has a category 1 heart rate tracing. No contractions on tocometer. General appearance is well appearing. No acute distress. Her lungs are clear to auscultation bilaterally. Cardiovascular: Heart regular rate and rhythm. Her abdomen is gravid, nontender. Estimated weight 3600 grams. Cervical Exam: She is 1 cm dilated, 25% effaced, -3 station. LABORATORY: Her labs - blood type is B+, antibody screen is negative, rubella is immune, RPR is nonreactive, hepatitis surface antigen is negative. HIV is negative. Hepatitis C is nonreactive. Chlamydia and gonorrhea screens are negative. She had a normal 1-hour Glucola, and she is GBS negative. ASSESSMENT: 1. Ms. Hutchison is a 22-year-old 2, para 0, presents at 39 weeks 0 days estimated gestational age. 2. Gestational hypertension. Currently stable. PLAN: 1. Admit to labor and delivery. CBC, RPR, type and screen, urine toxicology screen. 2. Discussed diagnosis with the couple, as well as reviewed induction of labor with procedures and medication use in labor and delivery. They have also been verbally consented for emergency surgery, blood products, anesthesia and desire to proceed with admission. 3. Will initiate her induction of labor with warm misoprostol 50 mcg.
[2017-03-31] MEDS ORDERED: OXYTOCIN 30 UNITS IN 0.9% NaCl 500ML IV BAG (J2590) As Ordered ONE (14:12)
[2017-03-31] MEDS ORDERED: OXYTOCIN DRIP 30 UNITS in APPROPRIATE DILUENT 1 EA IV SCH (14:15)
[2017-03-31] MEDS ORDERED: PROMETHAZINE INJ 25 MG/ML VIAL (J2550) IV PRN (14:15)
[2017-03-31] MEDS: LR 1,000 ML IV SCH ×2 (14:28→22:54)
[2017-03-31] MEDS ORDERED: BUTORPHANOL 2 MG/ML INJ (J0595) IV ONE (15:00)
[2017-03-31] MEDS ORDERED: FENTANYL 2MCG/ML ROPIVACAINE 0.2% IN 0.9% NACL 200ML IVBAG As Ordered ONE (19:06)
[2017-03-31] MEDS ORDERED: FENTANYL/ROPIVACAINE/NACL BAG 200 ML EPIDURAL SCH (20:05)
[2017-03-31] MEDS ORDERED: LACTATED RINGER'S 1000 ML IV PRN (20:05)
[2017-03-31] MEDS ORDERED: EPIDURAL COMMENT XX SCH (20:05)
[2017-03-31] MEDS ORDERED: ONDANSETRON 4MG/2ML VIAL (J2405) IV PRN (20:05)
[2017-03-31] MEDS ORDERED: ePHEDrine SULFATE 25 MG/5 ML(5MG/ML) SYRINGE IV PRN (20:05)
[2017-03-31] MEDS ORDERED: NALOXONE INJ 0.4 MG/1 ML VIAL (J2310) IV PRN (20:05)
[2017-03-31] MEDS ORDERED: diphenhydrAMINE INJ 50MG/ML VIAL (J1200) IV PRN (20:05)
[2017-03-31] MEDS ORDERED: EPIDURAL/PCA KEYS XX PRN (20:05)
[2017-03-31] MEDS ORDERED: REFRIGERATOR IV KEYS XX PRN (20:05)
[2017-04-01] VITALS (10 sets, daily range): BP systolic 125–142; BP diastolic 70–81
[2017-04-01] MEDS ORDERED: OXYTOCIN DRIP 30 UNITS in APPROPRIATE DILUENT 1 EA IV SCH (01:36)
[2017-04-01] MEDS ORDERED: IBUPROFEN 800 MG TAB PO PRN (01:45)
[2017-04-01] MEDS ORDERED: MEASLES,MUMPS,RUBELLA VACCINE INJ (MMR-II) (90707) SC SCH (01:45)
[2017-04-01] MEDS ORDERED: MOM 30ML SUSPENSION UDC PO PRN (01:45)
[2017-04-01] MEDS ORDERED: METHYLERGONOVINE MALEATE 0.2 MG TAB PO PRN (01:45)
[2017-04-01] MEDS ORDERED: RHOGAM 300 MCG (1500 IU) INJ (J2790) IM SCH (01:45)
[2017-04-01] MEDS ORDERED: ACETAMINOPHEN 500 MG TAB PO PRN (01:45)
[2017-04-01] MEDS ORDERED: ANUSOL HC CREAM 30GM TOP PRN (01:45)
[2017-04-01] MEDS ORDERED: DIBUCAINE 1% OINTMENT 30GM TOP PRN (01:45)
[2017-04-01] MEDS ORDERED: DOCUSATE SODIUM 100 MG CAP PO PRN (01:45)
[2017-04-01] MEDS: PRENATAL VITAMINS CHEWABLE TABLET PO SCH (08:25)
--- NOTE | 2017-04-01 11:21 | DN ---
DATE: 04/01/2017 TIME OF : 0057 hours GENDER: Female. SCORES: 8 and 9. WEIGHT: 6 pounds 14 ounces or 3110 grams. ANESTHESIA: Epidural. LACERATIONS: None. COUNTS: Five laparotomy sponges accounted for prior to and after the delivery. ESTIMATED BLOOD LOSS: 300 mL. DELIVERY NOTE: On 04/01/2017, at 0057 hours, this patient, a 22-year-old 1, now para 1, had a spontaneous vaginal delivery of a live born female . scores 8 and 9. Weight was 6 pounds 14 ounces, 3110 grams. Head was delivered over intact perineum followed by delivery of right anterior shoulder, left posterior shoulder and corpus. was then handed to mom with a good cry. Cord was clamped times two, was cut by support person. Cord blood was then obtained, pleasant was drained and delivered grossly intact. A premixed bag of 500 mL of normal saline with 30 units of pitocin was then bolused along with uterine massage until the uterus was firm. On inspection, the cervix, vagina and perineum was grossly intact and hemostatic. Mom and baby recovered in stable condition. The couple decided to name their daughter
[2017-04-02 06:02] VITALS: BP 119/74
[2017-04-02] MEDS: PRENATAL VITAMINS CHEWABLE TABLET PO SCH (07:58)
[2017-04-02] MEDS ORDERED: IBUP-1114 PO (08:56)
[2017-04-02] MEDS ORDERED: ACET50TA PO (08:56)
== END 2017-04-02 11:35 | disposition home or self-care (01) | DRG 560 ==
LOC: M LDI 18:35 → M OBS 04-01 03:30
PROVIDERS: ADMIT Obstetrics & Gynecology; ATTEND Obstetrics & Gynecology
PROC: 3E0DXGC Introduction of Other Therapeutic Substance into Mouth and Pharynx, External Approach (ICD-10-PCS; principal; 2017-03-30)
PROC: 10E0XZZ Delivery of Products of Conception, External Approach (ICD-10-PCS; 2017-04-01)
DX: O13.4 Gestational [pregnancy-induced] hypertension without significant proteinuria, complicating childbirth (principal); F17.200 Nicotine dependence, unspecified, uncomplicated; Z37.0 Single live birth; Z3A.39 39 weeks gestation of pregnancy; Z88.8 Allergy status to other drugs, medicaments and biological substances; O99.334 Smoking (tobacco) complicating childbirth